=== PATIENT | male | born 1965 | race Caucasian/White ===

== ENCOUNTER 2022-06-26 08:59 | Outpatient (CLI) | payer OTHER, SELFPAY ==
--- NOTE | 2022-06-26 10:00 | CRLHL7_ITS ---
For Patients: As a result of the Century Cures Act, medical imaging exams and procedure reports are released immediately into your electronic medical record. You may view this report before your referring provider. If you have questions, please contact your health care provider. Indication: Left lower quadrant pain Technique: Postcontrast CT abdomen and pelvis. Oral water. 143 cc Isovue 370 intravenous contrast. Please note that all CT scans at this facility use dose modulation, iterative reconstruction, and/or weight-based dosing when appropriate to reduce radiation dose to as low as reasonably achievable. Comparison: None Findings: Lung bases are clear. The liver parenchyma is normal. Normal gallbladder. Normal pancreas. Spleen and adrenal glands normal. Normal kidneys and ureters. Numerous subcentimeter retroperitoneal lymph nodes are present. Bladder incompletely distended. Prostate not enlarged. No bowel obstruction, free air, free fluid or abscess. No inflammatory change. Right paramidline supraumbilical abdominal wall hernia is present containing fat measuring 2.6 cm. 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 Impression: Right paramidline supraumbilical abdominal wall hernia containing fat measuring 2.6 cm. No evidence of diverticulitis, enteritis, colitis or bowel obstruction to explain the left lower quadrant symptoms. Numerous subcentimeter retroperitoneal lymph nodes may represent chronic low-grade nonspecific inflammation. Please note that all CT scans at this facility use dose modulation, iterative reconstruction, and/or weight-based dosing when appropriate to reduce radiation dose to as low as reasonably achievable. Dictated by David Barrera MD @ 06/26/2022 2:44:11 PM (Electronically Signed)
== END 2022-06-26 09:00 | disposition home or self-care (01) ==
PROVIDERS: PCP Family Medicine; Visit Provider Family Medicine
DX: R10.32 Left lower quadrant pain (principal); K42.9 Umbilical hernia without obstruction or gangrene
CPT/HCPCS: 74177; Q9967